=== PATIENT | female | born 1985 ===

== ENCOUNTER 2022-06-28 15:50 | Emergency (ER) | payer SELFPAY ==
[2022-06-28] MEDS ORDERED: BENZONATATE 100 MG CAP PO ONE (17:02)
[2022-06-28] MEDS ORDERED: ACETAMINOPHEN W/CODEINE 300-30 MG TAB PO ONE (17:02)
[2022-06-28] MEDS ORDERED: IPRATROPIUM/ALBUTEROL SULFATE 3 ML AMPUL.NEB IH ONE (17:02)
[2022-06-28] MEDS ORDERED: methylPREDNISolone Sod Succinate 125 MG/2 ML INJ IM ONE (17:02)
[2022-06-28 17:59] LABS: Alanine Aminotransferase 11 units/L (7-56); Albumin 3.5 g/dL (3.9-5); Blood Urea Nitrogen 11 mg/dL (7-17); Calcium 8.5 mg/dL (8.4-10.2); Hemolysis Index 9
[2022-06-28] MEDS ORDERED: FUROSEMIDE 100 MG/10 ML INJ IV ONE (18:04)
--- NOTE | 2022-06-28 18:09 | XRay Report ---
CHEST 2 VIEWS INDICATION / CLINICAL INFORMATION: chest pain. COMPARISON: None available. FINDINGS: SUPPORT DEVICES: None. HEART / MEDIASTINUM: There is mild prominence the cardiac silhouette. LUNGS / PLEURA: No focal infiltrate is seen. No pneumothorax is seen. There is mild venous congestion . ADDITIONAL FINDINGS: No significant additional findings. IMPRESSION: 1. There is mild venous congestion. There is mild prominence the cardiac silhouette. Signer Name: Huber Yañez MD Signed: 06/28/2022 6:04 PM Workstation Name: [id number]
[2022-06-28 18:12] LABS: BUN/Creatinine Ratio 16
[2022-06-28 19:17] LABS: Mean Corpuscular HGB Conc 28 % (30-34); Platelet Count 266 K/mm3 (140-440)
[2022-06-28 19:32] LABS: Hemoglobin 7.2 gm/dl (10.1-14.3)
[2022-06-28 19:33] LABS: Hematocrit 25.7 % (30.3-42.9); Mean Corpuscular Volume 60 fl (79-97); Red Cell Distribution Width 20.3 % (13.2-15.2)
--- NOTE | 2022-06-28 19:36 | Emergency Department Report ---
ED Shortness of Breath HPI - General Chief Complaint: Dyspnea/Respdistress Stated Complaint: DIFF BREATHING Time Seen by Provider: 06/28/22 16:51 Source: EMS Mode of arrival: Stretcher Limitations: No Limitations - History of Present Illness Initial Comments: 37-year-old black female with a past medical history of COPD, CHF, and hypertension presents to the emergency department for evaluation of 1 day history of shortness of breath. She states that shortness of breath is worse at night and associated with a persistent cough and headache. She denies chest pain, fever, dizziness, diaphoresis but states that she has had some intermittent wheezing. MD Complaint: shortness of breath, cough -: Gradual, days(s) (1) Pain Scale: 0 Worsens With: lying flat, coughing Known History Of: COPD, congestive heart failure Associated Symptoms: cough Treatments Prior to Arrival: bronchodilator - Related Data Previous Rx's Medication Instructions Recorded Last Taken Type Albuterol Mdi (or & Nicu Only) 2 puff IH QID PRN #8.5 gram 06/28/22 Unknown Rx [ProAir HFA Inhaler] Benzonatate [Tessalon Perles] 100 mg PO Q8HR PRN #30 cap 06/28/22 Unknown Rx guaiFENesin/CODEINE [Robitussin AC] 10 ml PO TID PRN #120 ml 06/28/22 Unknown Rx predniSONE [Deltasone] 50 mg PO QDAY 5 Days #5 tab 06/28/22 Unknown Rx Allergies Allergy/AdvReac Type Severity Reaction Status Date / Time iodine Allergy Hives Verified 06/28/22 16:04 tramadol Allergy Unknown Verified 06/28/22 16:04 ED Review of Systems ROS: Stated complaint: DIFF BREATHING Other details as noted in HPI Comment: All other systems reviewed and negative Constitutional: denies: chills, fever ENT: denies: congestion Respiratory: orthopnea, shortness of breath, SOB at rest, wheezing. denies: cou gh, SOB with exertion, stridor Cardiovascular: orthopnea. denies: chest pain, palpitations, dyspnea on exertion, edema, syncope, paroxysmal nocturnal dyspnea Gastrointestinal: abdominal pain. denies: nausea, vomiting, diarrhea, hematemesis, melena, hematochezia Genitourinary: denies: urgency, dysuria Musculoskeletal: denies: back pain Skin: denies: rash, lesions Neurological: denies: headache, weakness ED Past Medical Hx - Past Medical History Previous Medical History?: Yes Hx Hypertension: Yes Hx Congestive Heart Failure: Yes Hx COPD: Yes - Medications Home Medications: Home Medications Medication Instructions Recorded Confirmed Last Taken Type Albuterol Mdi (or & Nicu Only) 2 puff IH QID PRN #8.5 gram 06/28/22 Unknown Rx [ProAir HFA Inhaler] Benzonatate [Tessalon Perles] 100 mg PO Q8HR PRN #30 cap 06/28/22 Unknown Rx guaiFENesin/CODEINE [Robitussin AC] 10 ml PO TID PRN #120 ml 06/28/22 Unknown Rx predniSONE [Deltasone] 50 mg PO QDAY 5 Days #5 tab 06/28/22 Unknown Rx ED Physical Exam - General Limitations: No Limitations General appearance: alert, in no apparent distress - Head Head exam: Present: atraumatic, normocephalic - Eye Eye exam: Present: normal appearance. Absent: conjunctival injection, periorbital swelling, periorbital tenderness - ENT ENT exam: Present: normal exam, normal orophraynx - Neck Neck exam: Present: normal inspection. Absent: tenderness, lymphadenopathy - Respiratory Respiratory exam: Present: rales (Bilateral lower lobes), rhonchi. Absent: respiratory distress, wheezes, stridor, chest wall tenderness, accessory muscle use - Cardiovascular Cardiovascular Exam: Present: regular rate, normal heart sounds - GI/Abdominal GI/Abdominal exam: Present: soft, normal bowel sounds. Absent: distended, tenderness, guarding, rebound, rigid - Extremities Exam Extremities exam: Present: normal inspection, full ROM, normal capillary refill. Absent: tenderness, pedal edema, joint swelling, calf tenderness - Back Exam Back exam: Present: normal inspection. Absent: CVA tenderness (R), CVA tenderness (L), vertebral tenderness - Neurological Exam Neurological exam: Present: alert, oriented X3, CN II-XII intact, normal gait - Psychiatric Psychiatric exam: Present: normal affect, normal mood - Skin Skin exam: Present: warm, dry, intact, normal color ED Course Vital Signs 06/28/22 06/28/22 06/28/22 15:58 16:39 17:57 Temperature 97.5 F L 98.8 F Pulse Rate 92 H 70 Respiratory 16 16 20 Rate Blood Pressure 180/90 156/94 [Left] O2 Sat by Pulse 98 98 Oximetry 06/28/22 20:51 Temperature Pulse Rate 73 Respiratory 14 Rate Blood Pressure 162/91 [Left] O2 Sat by Pulse 99 Oximetry - Reevaluation(s) Reevaluation #1: 06/28/22 19:32 Patient states that she feels much better and is able to breathe with ease now. Patient ambulatory without any shortness of breath. 06/30/22 17:46 ED Medical Decision Making - Lab Data Result diagrams: 06/28/22 17:16 06/28/22 17:16 - Radiology Data Radiology results: image reviewed - Medical Decision Making 37-year-old black female with a past medical history of COPD, CHF, and hypertension presents to the emergency department for evaluation of 1 day history of shortness of breath. She states that shortness of breath is worse at night and associated with a persistent cough and headache. She denies chest pain, fever, dizziness, diaphoresis but states that she has had some intermittent wheezing. Chest x-ray with mild pulmonary congestion. Patient treated with one-time dose of Lasix 80 mg IV and advised to continue her home Lasix as previously prescribed. Patient noted to have low H&H but states that she has a persistent low H&H secondary to anemia. Shortness of breath resolved and patient ambulating around unit without shortness of breath. She will be discharged home with prednisone, Tessalon Perles, Robitussin-AC, and albuterol inhaler and advised to follow-up with her primary care provider, switch adjuster, and pulmonary. She is advised to return to the emergency department as needed. She verbalizes understanding of and agreement with plan of care. Critical care attestation.: If time is entered above; I have spent that time in minutes in the direct care of this critically ill patient, excluding procedure time. ED Disposition Clinical Impression: Shortness of breath, Venous congestion Disposition: 01 HOME / SELF CARE / HOMELESS Is pt being admited?: No Does the pt Need Aspirin: No Condition: Stable Instructions: Shortness of Breath, Adult, [id number], Cough, Adult, [id number], Heart Failure, Self Care, [id number], Living With Heart Failure, Pulmonary Edema, [id number] Additional Instructions: Take medications as prescribed. Continue your home Lasix as previously prescribed. Follow-up with cardiology and or pulmonology for further evaluation and management. Return to the emergency department as needed. Prescriptions: predniSONE [Deltasone] 50 mg PO QDAY 5 Days #5 tab Albuterol Mdi (or & Nicu Only) [ProAir HFA Inhaler] 2 puff IH QID PRN #8.5 gram PRN Reason: Shortness Of Breath guaiFENesin/CODEINE [Robitussin AC] 10 ml PO TID PRN #120 ml PRN Reason: Cough Benzonatate [Tessalon Perles] 100 mg PO Q8HR PRN #30 cap PRN Reason: Cough Referrals: VALERIE BENSON MD [Staff Physician] - 3-5 Days TRISTIN BOBBY MD [Staff Physician] - 3-5 Days JOHN COX DO [Referring] - 3-5 Days KLAUS CHEEMA MD [Staff Physician] - 3-5 Days Forms: Work/School Release Form(ED) Time of Disposition: 19:38
[2022-06-28 20:51] VITALS: BP 162/91
== END 2022-06-29 17:42 | disposition home or self-care (01) ==
LOC: ED 15:50
DX: R06.02 Shortness of breath (principal); I87.8 Other specified disorders of veins; I11.0 Hypertensive heart disease with heart failure; I50.9 Heart failure, unspecified; J44.1 Chronic obstructive pulmonary disease with (acute) exacerbation; Z91.09 Other allergy status, other than to drugs and biological substances; Z79.899 Other long term (current) drug therapy
CPT/HCPCS: 36415; 71046; 80053; 83880; 84484; 85027; 94640; 96372; 96374; 99284; J1940; J2930